=== PATIENT | male | born 1965 | race Caucasian/White ===

== ENCOUNTER 2023-12-14 09:54 | Emergency (ER) | payer OTHER, SELFPAY ==
[2023-12-14 09:58] VITALS: BP 160/86
[2023-12-14 10:47] LABS: ALT (SGPT) 25 U/L (0-50); AST (SGOT) 28 U/L (17-59); Albumin 4.6 g/dl (3.5-5.0); Alkaline Phosphatase 35 U/L (38-126); Blood Urea Nitrogen 24 mg/dl (9-20); Calcium 9.7 mg/dl (8.4-10.2); Carbon Dioxide 20 mmol/L (22-30); Chloride 108 mmol/L (98-107); Glucose 111 mg/dl (70-99); Potassium 4.3 mmol/L (3.5-5.1); Sodium 140 mmol/L (135-145); Total Bilirubin 0.4 mg/dl (0.2-1.3); Total Protein 6.7 g/dl (6.3-8.2); Urine Albumin Negative (Neg - Trace); Urine Bilirubin Negative (Negative); Urine Character Clear (Clear); Urine Color Yellow; Urine Glucose Negative (Negative); Urine Ketone Negative (Negative); Urine Leukocyte Negative (Negative); Urine Nitrite Negative (Negative); Urine Occult Blood 4+ (Negative); Urine Specific Gravity 1.015 (<1.030); Urine Urobilinogen Negative (Neg - 1+); eGFR > 60.00
[2023-12-14 11:18] LABS: Urine Red Blood Cell >100 /HPF (0-2); Urine Squamous Cell 0-2 /LPF (Few)
[2023-12-14 11:19] LABS: Urine White Cell 0-2 /HPF (0-5)
[2023-12-14 11:26] VITALS: BMI 25.3
--- NOTE | 2023-12-14 11:28 | ED.GENMED ---
History of Present Illness
General
Chief Complaint: Abdominal Symptoms
Source: patient
Time Seen by Provider: 12/14/23 11:05
History of Present Illness
History of Present Illness:
58yoM with a history of atrial fibrillation s/p ablation no longer on medications presenting for evaluation of abdominal pain. Patient was at work this morning around 8am when he started to experience an aching pain in his RLQ. The pain has been
coming in waves and is now located in the R flank. He has not taken anything OTC for his symptoms. He is having mild nausea but denies any vomiting. No prior history of similar symptoms. He denies any fevers, chills, diarrhea, constipation. Previous
abdominal surgeries include an umbilical hernia repair.
Phy Exam
General Physical Exam
General Presentation: well appearing and no apparent distress
General age: appears stated age
General Skin: warm and dry
General Habitus: normal
General Mental: alert
ENT Exam
ENT Exam: normocephalic
Pulmonary Exam
Pulmonary Exam: lungs clear, no respiratory distress, no crackles and no wheezing
Gastrointestinal Exam
Gastrointestinal Exam: non tender, soft, non distended and no cva tenderness
Holger Coma Scale
Eye Opening: Spontaneous
Verbal Response: Oriented
Motor Response: Obeys Commands
GCS Total Score: 15
Skin Exam
Skin Exam: normal color and warm/dry
Psychiatric Exam
Psychiatric Exam: normal mood/affect
Course
Orders/Labs/Results
Orders:
Orders
12/14/23 10:18
Comprehensive Metabolic Panel Urgent
Urinalysis Reflex To Culture Urgent
Date Specimen was Collected: 12/14/23
Time Specimen was Collected: 10:08
Urine Microscopic Reflex Cult Urgent
12/14/23 11:27
CT Abd/pel Without Iv Or Oral Urgent
Comment:
Reason For Exam: R flank pain, RLQ pain
0.9% Sodium Chloride 1000 ml [Nss] 1,000 ml IV BOLUS
12/14/23 11:58
Complete Blood Count/With Diff Urgent
12/14/23 13:41
Ketorolac [Toradol] 15 mg IV NOW STA
Abnormal Lab Results
12/14/23 12/14/23
10:18 11:58
WBC 11.4 H 10^3/uL
(4.8-10.8)
RBC 4.58 L 10^6/uL
(4.70-6.10)
MCH 32.3 H pg
(27.0-31.0)
MPV 10.6 H fL
(7.4-10.4)
Absolute Neuts (auto) 9.9 H 10^3/uL
(1.4-6.5)
Absolute Lymphs (auto) 1.0 L 10^3/uL
(1.2-3.4)
Neutrophils % 86.2 H %
(42.2-75.2)
Lymphocytes % 8.9 L %
(20.5-51.1)
Chloride 108 H mmol/L
(98-107)
Carbon Dioxide 20 L mmol/L
(22-30)
BUN 24 H mg/dl
(9-20)
Glucose 111 H mg/dl
(70-99)
Alkaline Phosphatase 35 L U/L
(38-126)
Ur Occult Blood Reflex 4+ A
(Negative)
Urine RBC >100 A /HPF
(0-2)
12/14/23 11:58
12/14/23 10:18
Vital Signs
Initial and Last Documented VS:
Initial Vital Signs
Temp Pulse Resp BP Pulse Ox
98.0 F 60 16 160/86 98
12/14/23 09:58 12/14/23 09:58 12/14/23 09:58 12/14/23 09:58 12/14/23 09:58
Last Documented Vital Signs
Temp Pulse Resp BP Pulse Ox
98.3 F 61 17 154/81 98
12/14/23 13:03 12/14/23 13:03 12/14/23 13:03 12/14/23 13:03 12/14/23 09:58
MDM/Problems Addressed
Differential Diagnosis Includes:
58yoM here with R flank and RLQ pain that began this morning. Coming in waves. Associated with nausea. He is afebrile and hemodynamically stable. He is well appearing in no distress. No abdominal or CVA tenderness on exam. Differential diagnosis
includes but is not limited to: kidney stone, appendicitis, biliary colic
Initial ED plan: Check CBC, CMP, UA, and CT abdomen. IV fluid bolus.
*Critical Care Note
Total Time (30-74mins, 75-104mins- exclusive of procedures): Not Applicable
Update Note
Update Note:
CT shows a 4mm proximal R ureteral stone with moderate hydro. Creatinine WNL. UA with hematuria but no signs of infection. Pain is controlled after 1 dose of Toradol. He is stable for discharge. Supportive care discussed including hydration, urine
straining, and Tylenol/ibuprofen for pain. Prescription given for Flomax. He declines prescription for oxycodone. Advised f/u with urology and ED return precautions discussed. He expressed understanding and is agreeable to plan. He was discharged in
stable condition.
ED Attending Note
-
Portions of this chart may have been created with voice recognition software.� Occasional wrong word or��sound alike� substitutions may have occurred due to the inherent limitations of voice recognition software.
Discharge Plan
Departure
Patient Disposition: Home (Routine Discharge)
Date of Disposition: 12/14/23
Time of Disposition: 14:43
Patient with high blood pressure during this ER visit?: Yes
Discharge Problem:
Calculus of right ureter
Instructions: How to Strain Your Urine, Kidney Stone, Adult ED
Prescriptions:
New
tamsulosin [Flomax] 0.4 mg capsule
0.4 mg PO HS Qty: 7 0RF
Referrals:
Aidan Roblero MD [Family Provider] -
Taj Wilkerson MD [Active] -
Activity Restrictions/Additional Instructions:
Drink plenty of fluids. Strain your urine and take Flomax until stone has passed.
Take Tylenol 650mg and ibuprofen 600mg every 6 hours as needed for pain.
Please call today to schedule a follow-up with urology. Return to the ER with any worsening symptoms, uncontrolled pain, fevers.
Interventions
Interventions:
*Risk Screen - Suicide Last Done: 12/14/23 10:00
*General Assessment Last Done: 12/14/23 11:28
*Neglect/Abuse Screening Last Done: 12/14/23 10:00
ED- Fall Risk Assessment Last Done: 12/14/23 11:29
*ED COVID-19 Vaccine History Last Done: 12/14/23 11:28
*Nursing Disposition Last Done: 12/14/23 15:25
RO-Fzoscp-Ajsanctrxa Assessment Last Done: 12/14/23 11:29
Discharge Date and Time
Discharge Date/Time: 12/14/23 15:25
Print Language: ZAMBIAN
[2023-12-14] MEDS: NSS 1000 IV (11:59)
[2023-12-14 12:08] LABS: % Basophils 0.2 % (0-2); % Eosinophils 0.2 % (0-6); % Immature Granulocytes 0.4 % (0-0.5); % Lymphocytes 8.9 % (20.5-51.1); % Monocytes 4.1 % (1.7-9.3); % Neutrophils 86.2 % (42.2-75.2); Absolute Monocytes 0.5 10^3/uL (0.1-0.6); Absolute Neutrophils 9.9 10^3/uL (1.4-6.5); Hematocrit 41.5 % (39.0-52.0); Hemoglobin 14.8 g/dL (13.0-18.0); Mean Corp Hgb Conc. 35.7 g/dL (33.0-37.0); Mean Corpuscular Hgb 32.3 pg (27.0-31.0); Mean Corpuscular Volume 90.6 fL (80.0-94.0); Mean Platelet Volume 10.6 fL (7.4-10.4); Nucleated Red Blood Cells % 0 % (-); Platelet Count 170 10^3/uL (130-400); Red Blood Cell Count 4.58 10^6/uL (4.70-6.10); White Blood Cell Count 11.4 10^3/uL (4.8-10.8)
[2023-12-14 13:03] VITALS: BP 154/81
[2023-12-14] MEDS: TORADOL 15 MG IV (13:47)
== END 2023-12-14 15:25 | disposition home or self-care (01) ==
LOC: EMR 09:54
PROVIDERS: Emergency Medicine; EMERGENCY PHYSICIAN Emergency Medicine; FAMILY PHYSICIAN Internal Medicine
DX: R10.31 Right lower quadrant pain (principal); N20.1 Calculus of ureter; R03.0 Elevated blood-pressure reading, without diagnosis of hypertension
CPT/HCPCS: 99284; 96374; 96361; 74176; 80053; 81003; 81015; 85025